=== PATIENT | male | born 1995 | race Caucasian/White ===

== ENCOUNTER 2021-04-29 12:47 | Emergency (ER) | payer SELFPAY ==
[~2021-04-29] VITALS: Ht 190.5 cm; Wt 118.2 kg
[2021-04-29 13:39] LABS: COLLECTION METHOD CLEAN CATCH
[2021-04-29 13:45] LABS: PH 6 (5-8); SQUAMOUS EPITHELIAL None Seen /hpf (0-10); URINE APPEARANCE Clear (CLEAR/HAZY); URINE BACTERIA None Seen /hpf (NONE SEEN); URINE BILIRUBIN Negative (NEGATIVE); URINE BLOOD Negative (NEGATIVE); URINE COLOR Straw (YELLOW); URINE GLUCOSE Negative (NEGATIVE); URINE KETONE Negative (NEGATIVE); URINE LEUKOCYTE ESTERASE Negative (NEGATIVE); URINE NITRATE Negative (NEGATIVE); URINE PROTEIN(semi-quant) Negative (NEGATIVE); URINE RBC 0-2 /hpf (0-2); URINE UROBILINOGEN Negative (NEGATIVE)
[2021-04-29] MEDS ORDERED: NAPROSYN500 MG PO (14:24)
[2021-04-29] MEDS ORDERED: FLEXERIL 1010 MG/TAB PO (14:24)
[2021-04-29 15:03] VITALS: BP 128/71; PULSE 68; TEMP 98.2
== END 2021-04-29 15:06 | disposition home or self-care (01) ==
LOC: COL.ER 12:47
PROVIDERS: Nurse Practitioner Primary Care
DX: S40.862A Insect bite (nonvenomous) of left upper arm, initial encounter (principal); M54.50 Low back pain, unspecified; W57.XXXA Bitten or stung by nonvenomous insect and other nonvenomous arthropods, initial encounter
CPT/HCPCS: J1885